=== PATIENT | female | born 1995 | race Two or more races ===

== ENCOUNTER 2023-12-29 11:30 | Emergency (ER) | payer MEDICAID, OTHER ==
[~2023-12-29] VITALS: Ht 144.8 cm; Wt 96.0 kg
[2023-12-29 13:19] VITALS: TEMP 98.7
[2023-12-29 13:21] VITALS: BP 128/73; PULSE 74; RESP 1; O2SAT 100
[2023-12-29] MEDS ORDERED: NAPR-746 PO (13:23)
[2023-12-29] MEDS: KETOROLAC TROMETH 60MG/2ML VIAL IM ONE (13:35)
== END 2023-12-29 13:39 | disposition home or self-care (01) ==
LOC: ER 11:40
DX: M77.8 Other enthesopathies, not elsewhere classified (principal)
CPT/HCPCS: 96372; 99283; J1885